=== PATIENT | male | born 1995 | race Caucasian/White ===

== ENCOUNTER 2020-02-13 13:14 | Outpatient (REF) | payer OTHER, SELFPAY | END 2020-02-13 13:15 | disposition home or self-care (01) | LOC: HO.HMGCLDS 13:14 | PROVIDERS: Visit Provider Internal Medicine | DX: Z20.828 Contact with and (suspected) exposure to other viral communicable diseases (principal) | CPT/HCPCS: 87635 ==

== ENCOUNTER → 2020-04-09 08:44 | Outpatient (BNVA) | payer OTHER, SELFPAY | PROVIDERS: PCP Physician Assistant; Referring Provider Physician Assistant; Visit Provider Physician Assistant | DX: Z76.89 Persons encountering health services in other specified circumstances (principal) ==

== ENCOUNTER → 2020-04-18 10:15 | Outpatient (BNVA) | payer OTHER, SELFPAY | PROVIDERS: PCP Physician Assistant; Visit Provider Orthopaedic Surgery | DX: M70.61 Trochanteric bursitis, right hip (principal) | CPT/HCPCS: 99212 ==

== ENCOUNTER 2020-04-25 | Outpatient (REF) | payer OTHER, SELFPAY | END 2020-04-25 00:01 | disposition home or self-care (01) | LOC: HO.LNP | PROVIDERS: Visit Provider Nurse Practitioner Psychiatric/Mental Health | DX: Z20.828 Contact with and (suspected) exposure to other viral communicable diseases (principal) | CPT/HCPCS: U0003 ==

== ENCOUNTER → 2020-04-26 13:43 | Outpatient (BNVA) | payer OTHER, SELFPAY | PROVIDERS: PCP Physician Assistant; Visit Provider Physician Assistant | DX: Z76.89 Persons encountering health services in other specified circumstances (principal) ==

== ENCOUNTER → 2020-05-02 14:45 | Outpatient (BNVA) | payer OTHER, SELFPAY | PROVIDERS: PCP Physician Assistant; Visit Provider Physician Assistant | DX: Z76.89 Persons encountering health services in other specified circumstances (principal) ==

== ENCOUNTER 2020-05-10 12:05 | Outpatient (REF) | payer OTHER, SELFPAY ==
[2020-05-10 14:28] LABS: Alanine Aminotransferase 27 U/L (0-40); Aspartate Amino Transferase 18 U/L (5-37); Estimated Glomerular Filt Rate > 60; Triglycerides 57 mg/dL
== END 2020-05-10 12:06 | disposition home or self-care (01) ==
LOC: HO.HMGCLDS 12:05
PROVIDERS: Nurse Practitioner Family; PCP Physician Assistant; Visit Provider Physician Assistant
DX: L70.0 Acne vulgaris (principal); L02.425 Furuncle of right lower limb; L02.426 Furuncle of left lower limb; L50.1 Idiopathic urticaria; Z79.899 Other long term (current) drug therapy; R19.7 Diarrhea, unspecified; R19.8 Other specified symptoms and signs involving the digestive system and abdomen; R10.11 Right upper quadrant pain
CPT/HCPCS: 36415; 82565; 84450; 84460; 84478

== ENCOUNTER → 2020-06-20 14:55 | Outpatient (BNVA) | payer OTHER, SELFPAY | PROVIDERS: PCP Physician Assistant; Visit Provider Physician Assistant ==

== ENCOUNTER 2020-07-17 15:51 | Outpatient (REF) | payer OTHER, SELFPAY ==
[2020-07-17 17:28] LABS: Alanine Aminotransferase 19 U/L (0-40); Aspartate Amino Transferase 20 U/L (5-37); Triglycerides 64 mg/dL
== END 2020-07-17 15:52 | disposition home or self-care (01) ==
LOC: HO.LAB 15:51
PROVIDERS: PCP Physician Assistant; Visit Provider Physician Assistant
DX: L70.0 Acne vulgaris (principal); Z79.899 Other long term (current) drug therapy
CPT/HCPCS: 36415; 84450; 84460; 84478

== ENCOUNTER → 2020-07-31 14:21 | Outpatient (BNVA) | payer OTHER, SELFPAY | PROVIDERS: PCP Physician Assistant; Visit Provider Orthopaedic Surgery ==

== ENCOUNTER 2020-08-16 12:58 | Outpatient (REF) | payer OTHER, SELFPAY ==
[2020-08-16 14:46] LABS: Alanine Aminotransferase 21 U/L (0-40); Aspartate Amino Transferase 25 U/L (5-37); Triglycerides 41 mg/dL
== END 2020-08-16 12:59 | disposition home or self-care (01) ==
LOC: HO.HMGCLDS 12:58
PROVIDERS: PCP Physician Assistant; Visit Provider Physician Assistant
DX: L70.0 Acne vulgaris (principal); L85.3 Xerosis cutis; K13.0 Diseases of lips; Z79.899 Other long term (current) drug therapy
CPT/HCPCS: 36415; 84450; 84460; 84478

== ENCOUNTER 2020-09-27 14:00 | Outpatient (RCR) | payer OTHER, SELFPAY ==
--- NOTE | 2020-09-03 13:46 | MHC.PT.EP ---
[facility] [place] [facility] [place] Office [place] Office [address] Amee Rivera [address] [phone] F: [phone] F: [phone] F: [phone] F: [phone] Physical Therapy Plan of Care Date of Evaluation: Date of Surgery: Diagnosis: RIGHT TROCHANTERIC BURSITIS Assessment: Pt PRESENTS WITH PAIN IN PIRIFORMIS AND PSOAS MUSCLES ON RIGHT LEADING TO MUCULAR LENGTH AND STRENGTH IMBALANCES OF LE. IMPAIRMENTS INCLUDE DECREASED LE ROM AND STRENGTH, ALTERED POSTURE AND PSOITIONING, ALTERED SOFT TISSUE MOBILITY, INCREASED PAIN. FUNCTIONAL LIMITATIONS INCLUDE DECREASED TOLERANCE TO WALKING, STATIC STANDING, STAIR MANAGEMENT, PUSHING, PULLING AND SQUATTING. HE REPORTS DISRUPTED SLEEP, DECREASED ABILITY TO PARTICIPATE IN RECREATIONAL AND FITNESS ACTIVITIES. Frequency and Duration: The patient will be seen 2 X WEEK FOR 5 WEEKS Short Term Goals: INITIATE/PROGRESS PREVIOUS HEP AND DEMONSTRATE EVIDENCE OF LEARNING IN 2 VISITS Transmission Mechanic Goals: IN 5 WEEKS: TO DEMONSTRATE FULL HIP ROM, EQUAL TOREY TO DEMONSTRATE FULL LE STRENGTH, EQUAL TOREY TO ASCEND AND DESCEND STAIRS WITHOUT PAIN GREATER THAN 2/10 TO AMBULATE AD SOL ON LEVEL AND UNEVEN SURFACES FOR FITNESS WITHOUT PAIN GREATER THAN 2/10 TO PERFORM FULL FUNCTIONAL SQUAT WITHOUT SUBSTITUTION Treatment Plan: Modalities to reduce pain, spasms and effusion. Manual therapy to restore motion and function. Therapeutic exercise to improve strength and flexibility. Neuromuscular re-education for posture and balance. Therapeutic activities to return to functional activities of daily living. Electronically signed by: ECHO CAMILO PT, DPT Please sign and return to therapist. Thank you for your referral.
--- NOTE | 2020-10-11 15:47 | MHC.PT.DC ---
[facility] [place] Office [place] Office [place] Office [address] Amee Rivera 140 [facility] [phone] F: [phone] F: [phone] F: [phone] F: [phone] Physical Therapy Discharge Report Diagnosis: RIGHT TROCHANTERIC BURSITIS Date of Surgery: Date of Evaluation: 09/03/20 Date of Discharge: 10/11/20 Treatments to Date: 3 Cancellations to Date: 0 No Shows to Date: 4 Discharge Status: Visit Non-compliance Discharge Summary: Per [facility] policy the patient is to be discharged from this physical therapy plan of care. He has not been seen in this office for approximately 2 weeks. His current status is unknown. Electronically signed by: Greer Mccloud PT, DPT Please sign and return to therapist. Thank you for your referral.
== END 2020-10-11 15:47 | disposition other institution (70) ==
LOC: HO.PT 14:00
PROVIDERS: PCP Physician Assistant; Visit Provider Orthopaedic Surgery
DX: M70.61 Trochanteric bursitis, right hip (principal)
CPT/HCPCS: 97033; 97110; 97140; 97161; 97530

== ENCOUNTER 2020-10-25 11:47 | Outpatient (REF) | payer OTHER, SELFPAY ==
--- NOTE | ~2020-10-25 | XR_ITS ---
EXAMINATION: XR HIP, RIGHT CLINICAL INFORMATION: Pain. COMPARISON: None TECHNIQUE: Two views of the right hip. FINDINGS: The femoral head contour is smooth. No bony erosion or osteopenia is seen. The joint space is fairly well preserved. No fracture or dislocation. No significant degenerative changes. XR/XR hip RT min 2V IMPRESSION: No bony finding.
== END 2020-10-25 11:48 | disposition home or self-care (01) ==
LOC: HO.XRAY 11:47
PROVIDERS: Visit Provider Physician Assistant
DX: M70.61 Trochanteric bursitis, right hip (principal); M25.551 Pain in right hip
CPT/HCPCS: 73502

== ENCOUNTER 2020-11-26 13:22 | Outpatient (REF) | payer OTHER, SELFPAY ==
--- NOTE | ~2020-11-26 | CT_ITS ---
EXAMINATION: CT HIP WITHOUT CONTRAST, RIGHT CLINICAL INFORMATION: Pain COMPARISON: Previous x-ray 10/25/2020 and December 2019 TECHNIQUE: Axial images through the right hip without contrast. Sagittal and coronal reconstructed images on the technologist workstation were formed. This CT examination was performed using dose optimization techniques as appropriate, variously including the following: *Automated exposure control *Adjustment of mA and/or kV according to patient size (this includes techniques or standardized protocols for targeted exams where dose is matched to indication/reason for exam; i.e. extremities or head) *Use of iterative reconstruction technique DLP: 241 mGy-cm FINDINGS: Bone alignment is normal. No fracture or dislocation is seen. The joint space is normal. There are sclerotic densities in the right iliac bone and right femoral head. These are nonspecific and may represent bone islands. These are unchanged from earliest right hip x-ray December 2019. Surrounding soft tissues are normal. Visualized pelvis is unremarkable. CT/CT hip RT wo con IMPRESSION: Unremarkable exam.
== END 2020-11-26 13:23 | disposition home or self-care (01) ==
LOC: HO.CT 13:22
PROVIDERS: Visit Provider Physician Assistant
DX: M25.551 Pain in right hip (principal)
CPT/HCPCS: 73700

== ENCOUNTER → 2021-08-29 12:07 | Outpatient (RCR) | payer OTHER, SELFPAY ==
--- NOTE | 2020-05-04 12:54 | MHC.PT.EP ---
[facility] [place] Office [place] Office [place] Office [address] Charity Rivera [address] [phone] F: [phone] F: [phone] F: [phone] F: [phone] Physical Therapy Plan of Care Date of Evaluation: 05/04/20 Date of Surgery: Diagnosis: R hip trochanteric bursitis Assessment: Patient is a 24 year old R handed male who presents with s/s consistent with R hip pain. He is not working and is fairly sedentary. He does have ADHD and a history of R meniscectomy x2, but otherwise, no contributing PMH. Current impairments include pain, ROM, strength, flexibility, activity tolerance and functional mobility. Functional limitations include decreased ability to walk, stand, transfer, negotiate stairs, and perform weight bearing activities.. Patient is motivated with good rehab potential. Skilled PT will address impairments and functional limitations in order to achieve goals. Frequency and Duration: The patient will be seen 2x/week for 5 weeks Short Term Goals: I with HEP - 2 weeks Normal quad flexibility/hip flex flexibility - 3 weeks Ui Architect Goals: hip abd strength 4/5, hip ext strength 4/5 - 5 weeks LEFS 68/80 - 5 weeks no pain with ADLs - 5 weeks Treatment Plan: Modalities to reduce pain, spasms and effusion. Manual therapy to restore motion and function. Therapeutic exercise to improve strength and flexibility. Neuromuscular re-education for posture and balance. Therapeutic activities to return to functional activities of daily living. Electronically signed by: Jamar Hagen PT Please sign and return to therapist. Thank you for your referral.
--- NOTE | 2021-08-29 12:07 | MHC.PT.DC ---
[facility] [place] Office [place] Office [place] Office [address] Amee Rivera 140 [facility] [phone] F: [phone] F: [phone] F: [phone] F: [phone] Physical Therapy Discharge Report Diagnosis: R hip trochanteric bursitis Date of Surgery: Date of Evaluation: 05/04/20 Date of Discharge: 08/29/21 Treatments to Date: 16 Cancellations to Date: No Shows to Date: Discharge Status: Achieved Goals Improved Function Independent with HEP Discharge Summary: Pt Hip ROM all WNL and pain free. DC to HEP Electronically signed by: Sabrina Finn PT Please sign and return to therapist. Thank you for your referral.
== END | disposition home or self-care (01) ==
LOC: HO.PTCHIC 05-04 10:50
PROVIDERS: PCP Physician Assistant; Visit Provider Orthopaedic Surgery
DX: M70.61 Trochanteric bursitis, right hip (principal)
CPT/HCPCS: 97110; 97112; 97140; 97162

== ENCOUNTER 2024-01-15 14:51 | Outpatient (REF) | payer MEDICARE, MEDICAID, SELFPAY ==
[2024-01-15 15:54] LABS: Amphetamine Screen Urine Not Detected (Not Detect); Barbiturates, Urine Not Detected (Not Detect); Benzodiazepines Screen Urine Not Detected (Not Detect); Buprenorphine Scr Not Detected (Not Detect); Cannabinoid Screen Urine Not Detected (Not Detect); Cocaine Screen Urine Not Detected (Not Detect); Fentanyl, urine Not Detected (Not Detect); Methadone Screen, Urine Not Detected (Not Detect); Opiate Screen Urine Not Detected (Not Detect); Oxycodone Screen Urine Not Detected (Not Detect); Phencyclidine Screen Urine Not Detected (Not Detect)
== END 2024-01-15 14:52 | disposition home or self-care (01) ==
LOC: HO.LAB 14:51
PROVIDERS: Visit Provider Clinical Nurse Specialist Psychiatric/Mental Health
DX: Z51.81 Encounter for therapeutic drug level monitoring (principal); Z79.899 Other long term (current) drug therapy
CPT/HCPCS: 80307